=== PATIENT | female | born 1990 | race American Indian/Alaskan Native ===

== ENCOUNTER 2016-10-26 07:59 | Emergency (ER) | payer BC ==
[2016-10-26] MEDS ORDERED: ZOFRAN ODT ONE (08:30)
[2016-10-26 08:47] VITALS: BP 130/77
[2016-10-26 09:30] LABS: Basophils % (Auto) 0.7 % (0.0-1.8); Eosinophils % (Auto) 1.9 % (0.0-4.3); Hematocrit 45.7 % (30.3-42.9); Hemoglobin 14.8 gm/dl (10.1-14.3); Mean Corpuscular HGB Conc 33 % (30-34); Mean Corpuscular Volume 78 fl (79-97); Platelet Count 187 K/mm3 (140-440); Red Blood Count 5.84 M/mm3 (3.65-5.03); Red Cell Distribution Width 12.9 % (13.2-15.2); White Blood Count 8.9 K/mm3 (4.5-11.0)
[2016-10-26 09:37] LABS: Mean Corpuscular Hemoglobin 25 pg (28-32)
[2016-10-26 09:50] LABS: Alanine Aminotransferase 16 units/L (7-56); Albumin 4.4 g/dL (3.9-5); Albumin/Globulin Ratio 1.3 %; Alkaline Phosphatase 58 units/L (35-129); Anion Gap 19 mmol/L; BUN/Creatinine Ratio 11.11; Blood Urea Nitrogen 10 mg/dL (7-17); Carbon Dioxide 24 mmol/L (22-30); Chloride 102.1 mmol/L (98-107); Glucose 114 mg/dL (65-100); Potassium 4.1 mmol/L (3.6-5.0); Sodium 141 mmol/L (137-145); Total Protein 7.8 g/dL (6.3-8.2)
[2016-10-26 09:57] LABS: Alanine Aminotransferase 16 units/L (7-56); Albumin 4.6 g/dL (3.9-5); Albumin/Globulin Ratio 1.5 %; Alkaline Phosphatase 59 units/L (35-129); Lipase 13 units/L (13-60); Total Protein 7.6 g/dL (6.3-8.2)
[2016-10-26 10:01] LABS: Bilirubin,Direct < 0.2 mg/dL (0-0.2)
[2016-10-26 10:31] LABS: Urine Drugs of Abuse Note Disclamer
[2016-10-26 10:53] LABS: Bacteria,Urine 1+ /HPF (Negative); Bilirubin,Urine NEG (Negative); Blood,Urine MOD (Negative); Ketones,Urine 20 mg/dL (Negative); Leukocyte Esterase,Urine NEG (Negative); Mucus,Urine 1+ /HPF; Nitrite,Urine NEG (Negative); WBC,Urine < 1.0 /HPF (0.0-6.0)
== END 2016-10-26 20:10 | disposition left against medical advice (07) ==
LOC: ED 07:59
DX: R10.9 Unspecified abdominal pain (principal); R11.11 Vomiting without nausea; Z53.21 Procedure and treatment not carried out due to patient leaving prior to being seen by health care provider
CPT/HCPCS: 36415; 80053; 80074; 80307; 81001; 83690; 84484; 85025; 93005; 93010; Q0162